=== PATIENT | female | born 1960 | race Caucasian/White ===

== ENCOUNTER 2019-02-02 18:44 | Inpatient (IN) | payer MEDICARE, OTHER ==
[~2019-02-02] VITALS: Ht 170.2 cm; Wt 69.5 kg
[2019-02-02] MEDS ORDERED: GABA-531 PO (19:09)
[2019-02-02] MEDS ORDERED: DULO30CA52 PO (19:09)
[2019-02-02] MEDS ORDERED: ARIP10TA16 PO (19:09)
[2019-02-02] MEDS ORDERED: RIVA1TAB PO (19:09)
[2019-02-02] MEDS ORDERED: NYST1POW9 MC (19:10)
[2019-02-02] MEDS ORDERED: SIMV-43 PO (19:10)
[2019-02-02 19:48] LABS: EOSINOPHILS % (AUTO) 0.4 % (1.0-6.0); LYMPHOCYTES # (AUTO) 0.7 K/uL (1.0-4.8); LYMPHOCYTES % (AUTO) 30.6 % (22.0-44.0); MEAN CORPUSCULAR HEMOGLOBIN 29.9 pg (26.0-34.0); MEAN CORPUSCULAR VOLUME 88 fL (80-100); MONOCYTES # (AUTO) 0.3 K/uL (0.1-1.0); MONOCYTES % (AUTO) 11.6 % (2.0-9.0); NEUTROPHILS # (AUTO) 1.3 K/uL (1.8-7.7); NEUTROPHILS % (AUTO) 56.4 % (40.0-70.0); PLATELET COUNT (AUTO) 219 K/uL (150-450); RED BLOOD CELL COUNT(AUTO) 2.23 MIL/uL (4.00-5.20); RED CELL DISTRIBUTION WIDTH 16.1 % (11.5-14.5)
[2019-02-02 20:05] LABS: HEMATOCRIT 19.6 % (36-46); HEMOGLOBIN 6.7 g/dL (12.0-16.0)
[2019-02-02 20:06] LABS: CARBON DIOXIDE 32 mmol/L (22-29); CHLORIDE 103 mmol/L (98-107); POTASSIUM 3.6 mmol/L (3.5-5.1); SODIUM SERUM 141 mmol/L (136-145)
[2019-02-02 20:07] LABS: ANION GAP 6 mmol/L (8-16); CALCIUM, TOTAL 8.4 mg/dL (8.8-10.5); CREATININE 0.72 mg/dL (0.60-1.30); GLOMERULAR FILTR. RATE CALC > 60 mL/min (>60); GLUCOSE,RANDOM 121 mg/dL (70-110); UREA NITROGEN, BLOOD 13 mg/dL (7-18)
[2019-02-02 20:11] LABS: PLATELET MORPHOLOGY COMMENT NORMAL
[2019-02-02 20:12] LABS: ALANINE AMINOTRANSFERASE 41 U/L (12-78); ALBUMIN 2.9 g/dL (3.4-5.0); ALKALINE PHOSPHATASE 108 U/L (46-116); ASPARTATE AMINOTRANSFERASE 53 U/L (15-37); BILIRUBIN,TOTAL 1.1 mg/dL (0.1-1.0); TOTAL PROTEIN, SERUM 6.4 g/dL (6.4-8.2)
[2019-02-02] MEDS ORDERED: SODIUM CHLORIDE 0.9% 1,000 ML ONE (21:29)
[2019-02-02 21:40] VITALS: BP 98/57
[2019-02-02 22:00] VITALS: BP 100/58
[2019-02-02 22:15] VITALS: BP 108/63
[2019-02-02 22:45] VITALS: BP 117/72
[2019-02-02 23:15] VITALS: BP 118/81
[2019-02-02] MEDS ORDERED: ACETAMINOPHEN 325 MG TABLET PO PRN ×2 (23:30)
[2019-02-02] MEDS ORDERED: 0.9% SODIUM CHLORIDE 10 ML SYRINGE IVP PRN ×2 (23:30)
[2019-02-02] MEDS ORDERED: ONDANSETRON HCL 4 MG/2 ML VIAL IVP PRN ×2 (23:30)
[2019-02-03] VITALS (15 sets, daily range): BP systolic 98–135; BP diastolic 52–74
[2019-02-03] MEDS ORDERED: MAGNESIUM HYDROXIDE SUSPENSION 30 ML UDCUP PO PRN (00:45)
[2019-02-03] MEDS ORDERED: ALBUTEROL SULFATE 2.5 MG/0.5 ML NEB SOLUTION NEB PRN (00:45)
[2019-02-03] MEDS ORDERED: IPRATROPIUM BROMIDE 0.5 MG/2.5 ML NEB SOLUTION NEB PRN (00:45)
[2019-02-03] MEDS ORDERED: ONDANSETRON HCL 4 MG/2 ML VIAL IVP PRN (00:45)
[2019-02-03] MEDS ORDERED: BISACODYL 10 MG RECTAL RECTAL SUPPOSITORY PR PRN (00:45)
[2019-02-03] MEDS ORDERED: ZOLPIDEM TARTRATE 5 MG TABLET PO PRN (00:45)
[2019-02-03] MEDS ORDERED: MORPHINE SULFATE 2 MG/ML SYRINGE IVP PRN (00:45)
[2019-02-03 01:18] LABS: BASOPHILS % (AUTO) 1.2 % (0.0-2.0); EOSINOPHILS % (AUTO) 0.9 % (1.0-6.0); LYMPHOCYTES # (AUTO) 0.9 K/uL (1.0-4.8); MEAN CORPUSCULAR HEMOGLOBIN 30.2 pg (26.0-34.0); MEAN CORPUSCULAR HGB CONC 34.6 G/dL (31.0-37.0); MEAN CORPUSCULAR VOLUME 87 fL (80-100); MONOCYTES # (AUTO) 0.4 K/uL (0.1-1.0); MONOCYTES % (AUTO) 16.2 % (2.0-9.0); NEUTROPHILS # (AUTO) 1.2 K/uL (1.8-7.7); NEUTROPHILS % (AUTO) 45.7 % (40.0-70.0); PLATELET COUNT (AUTO) 185 K/uL (150-450); RED BLOOD CELL COUNT(AUTO) 2.26 MIL/uL (4.00-5.20); RED CELL DISTRIBUTION WIDTH 15.6 % (11.5-14.5)
[2019-02-03 01:24] LABS: HEMATOCRIT 19.7 % (36-46); HEMOGLOBIN 6.8 g/dL (12.0-16.0)
[2019-02-03 01:27] LABS: ANION GAP 6 mmol/L (8-16); CALCIUM, TOTAL 8.2 mg/dL (8.8-10.5); CARBON DIOXIDE 30 mmol/L (22-29); CHLORIDE 104 mmol/L (98-107); CREATININE 0.69 mg/dL (0.60-1.30); GLOMERULAR FILTR. RATE CALC > 60 mL/min (>60); GLUCOSE,RANDOM 150 mg/dL (70-110); POTASSIUM 3.4 mmol/L (3.5-5.1); SODIUM SERUM 140 mmol/L (136-145); UREA NITROGEN, BLOOD 13 mg/dL (7-18)
[2019-02-03 01:33] LABS: ALANINE AMINOTRANSFERASE 35 U/L (12-78); ALBUMIN 2.5 g/dL (3.4-5.0); ALKALINE PHOSPHATASE 92 U/L (46-116); ASPARTATE AMINOTRANSFERASE 53 U/L (15-37); BILIRUBIN,TOTAL 1.8 mg/dL (0.1-1.0); TOTAL PROTEIN, SERUM 5.7 g/dL (6.4-8.2)
[2019-02-03] MEDS ORDERED: SODIUM CHLORIDE 0.9% 500 ML IV ONE (02:30)
[2019-02-03] MEDS: NYSTATIN 15 GM POWDER BOTTLE TP SCH ×3 (02:57→20:14)
[2019-02-03] MEDS: ACETAMINOPHEN 325 MG TABLET PO PRN (03:10)
[2019-02-03] MEDS ORDERED: INFLUENZA VIRUS VACCINE QVS 2019-20 (3YR+)/PF 60 MCG/0.5 ML SYRINGE IM ONE (06:15)
[2019-02-03 08:37] LABS: BASOPHILS % (AUTO) 1.2 % (0.0-2.0); EOSINOPHILS % (AUTO) 3.2 % (1.0-6.0); HEMATOCRIT 23.4 % (36-46); LYMPHOCYTES # (AUTO) 1.2 K/uL (1.0-4.8); LYMPHOCYTES % (AUTO) 44.8 % (22.0-44.0); MEAN CORPUSCULAR HEMOGLOBIN 29.7 pg (26.0-34.0); MEAN CORPUSCULAR HGB CONC 34.2 G/dL (31.0-37.0); MEAN CORPUSCULAR VOLUME 87 fL (80-100); MONOCYTES # (AUTO) 0.4 K/uL (0.1-1.0); NEUTROPHILS # (AUTO) 0.9 K/uL (1.8-7.7); NEUTROPHILS % (AUTO) 35.8 % (40.0-70.0); PLATELET COUNT (AUTO) 179 K/uL (150-450); RED CELL DISTRIBUTION WIDTH 14.7 % (11.5-14.5)
[2019-02-03 08:55] LABS: ALANINE AMINOTRANSFERASE 37 U/L (12-78); ALBUMIN 2.5 g/dL (3.4-5.0); ALKALINE PHOSPHATASE 89 U/L (46-116); ANION GAP 3 mmol/L (8-16); ASPARTATE AMINOTRANSFERASE 56 U/L (15-37); BILIRUBIN,TOTAL 1.8 mg/dL (0.1-1.0); CALCIUM, TOTAL 8.6 mg/dL (8.8-10.5); CARBON DIOXIDE 32 mmol/L (22-29); CHLORIDE 107 mmol/L (98-107); CREATININE 0.51 mg/dL (0.60-1.30); GLOMERULAR FILTR. RATE CALC > 60 mL/min (>60); GLUCOSE,RANDOM 98 mg/dL (70-110); POTASSIUM 3.5 mmol/L (3.5-5.1); SODIUM SERUM 142 mmol/L (136-145); TOTAL PROTEIN, SERUM 5.6 g/dL (6.4-8.2); UREA NITROGEN, BLOOD 12 mg/dL (7-18)
[2019-02-03] MEDS: DOCUSATE SODIUM 100 MG CAPSULE PO SCH ×2 (09:10→20:00)
[2019-02-03] MEDS: ARIPiprazole 10 MG TABLET PO SCH (09:10)
[2019-02-03] MEDS: SIMVASTATIN 20 MG TABLET PO SCH (09:10)
[2019-02-03] MEDS: GABAPENTIN 300 MG CAPSULE PO SCH ×3 (09:10→20:00)
[2019-02-03] MEDS: DULoxetine HCL 30 MG CAPSULE PO SCH (09:10)
[2019-02-03] MEDS ORDERED: RIVAROXABAN 15 MG TABLET PO SCH (17:30)
[2019-02-03] MEDS: HYDROCODONE/ACETAMINOPHEN 5-325 MG TABLET PO PRN (20:01)
[2019-02-04] VITALS (7 sets, daily range): BP systolic 90–118; BP diastolic 51–61
[2019-02-04] MEDS: HYDROCODONE/ACETAMINOPHEN 5-325 MG TABLET PO PRN (04:19)
[2019-02-04] MEDS: ARIPiprazole 10 MG TABLET PO SCH (09:57)
[2019-02-04] MEDS: DULoxetine HCL 30 MG CAPSULE PO SCH (09:57)
[2019-02-04] MEDS: NYSTATIN 15 GM POWDER BOTTLE TP SCH ×2 (09:57→20:03)
[2019-02-04] MEDS: SIMVASTATIN 20 MG TABLET PO SCH (09:57)
[2019-02-04] MEDS: GABAPENTIN 300 MG CAPSULE PO SCH ×3 (09:57→20:00)
[2019-02-04] MEDS: DOCUSATE SODIUM 100 MG CAPSULE PO SCH ×2 (09:57→20:00)
[2019-02-04] MEDS ORDERED: SODIUM CHLORIDE 0.9% 500 ML IV ONE (12:41)
[2019-02-04] MEDS: SOD FERRIC GLUC COMPLX/SUCROSE 125 MG in SODIUM CHLORIDE 0.9% 100 ML IV SCH (12:52)
[2019-02-04] MEDS: MULTIVITAMINS WITH MINERALS, THERAPEUTIC TABLET PO SCH (12:57)
[2019-02-04] MEDS: ACETAMINOPHEN 325 MG TABLET PO PRN (20:00)
[2019-02-05 05:06] VITALS: BP 101/61
[2019-02-05 06:37] LABS: BASOPHILS % (AUTO) 1.1 % (0.0-2.0); EOSINOPHILS % (AUTO) 5.2 % (1.0-6.0); HEMATOCRIT 26.1 % (36-46); HEMOGLOBIN 8.9 g/dL (12.0-16.0); LYMPHOCYTES # (AUTO) 1.3 K/uL (1.0-4.8); LYMPHOCYTES % (AUTO) 42.8 % (22.0-44.0); MEAN CORPUSCULAR HGB CONC 34.1 G/dL (31.0-37.0); MEAN CORPUSCULAR VOLUME 88 fL (80-100); MONOCYTES # (AUTO) 0.3 K/uL (0.1-1.0); MONOCYTES % (AUTO) 9.3 % (2.0-9.0); NEUTROPHILS # (AUTO) 1.3 K/uL (1.8-7.7); NEUTROPHILS % (AUTO) 41.6 % (40.0-70.0); PLATELET COUNT (AUTO) 194 K/uL (150-450); RED BLOOD CELL COUNT(AUTO) 2.97 MIL/uL (4.00-5.20); RED CELL DISTRIBUTION WIDTH 15.3 % (11.5-14.5)
[2019-02-05 07:58] VITALS: BP 106/55
[2019-02-05] MEDS: ARIPiprazole 10 MG TABLET PO SCH (08:42)
[2019-02-05] MEDS: MULTIVITAMINS WITH MINERALS, THERAPEUTIC TABLET PO SCH (08:42)
[2019-02-05] MEDS: SIMVASTATIN 20 MG TABLET PO SCH (08:42)
[2019-02-05] MEDS: DULoxetine HCL 30 MG CAPSULE PO SCH (08:42)
[2019-02-05] MEDS: GABAPENTIN 300 MG CAPSULE PO SCH ×2 (08:43→16:12)
[2019-02-05] MEDS: DOCUSATE SODIUM 100 MG CAPSULE PO SCH (08:43)
[2019-02-05] MEDS: NYSTATIN 15 GM POWDER BOTTLE TP SCH (08:43)
[2019-02-05 11:35] VITALS: BP 99/58
[2019-02-05] MEDS: SOD FERRIC GLUC COMPLX/SUCROSE 125 MG in SODIUM CHLORIDE 0.9% 100 ML IV SCH (12:17)
[2019-02-05] MEDS: ACETAMINOPHEN 325 MG TABLET PO PRN (12:33)
[2019-02-05] MEDS ORDERED: NYST15PO3 TP (12:37)
[2019-02-05] MEDS ORDERED: MUPIROCIN CALCIUM 2% 22 GM OINTMENT TP SCH (21:00)
== END 2019-02-05 18:00 | disposition home or self-care (01) | DRG 811 ==
LOC: EMS 18:50 → 4E 23:00
PROVIDERS: ADMIT Hospitalist; ATTEND Hospitalist
PROC: 30233N1 Transfusion of Nonautologous Red Blood Cells into Peripheral Vein, Percutaneous Approach (ICD-10-PCS; principal; 2019-02-02)
DX: D64.9 Anemia, unspecified (principal); E43 Unspecified severe protein-calorie malnutrition; B48.8 Other specified mycoses; F20.9 Schizophrenia, unspecified; E78.5 Hyperlipidemia, unspecified; F32.9 Major depressive disorder, single episode, unspecified; Z74.01 Bed confinement status
CPT/HCPCS: 76700; 82271; 86850; 86900; 86901; 86920; 87081; 93005; 93970; G0378; J2916; J7030; J7040; J7050; P9016

== ENCOUNTER 2019-04-23 21:46 | Emergency (ER) | payer MEDICARE, OTHER ==
[~2019-04-23] VITALS: Ht 162.6 cm; Wt 71.4 kg
[~2019-04-23 21:46] MED LIST: ARIP10TA16 PO; DULO30CA52 PO; GABA-531 PO; NYST15PO3 TP; SIMV-43 PO
[2019-04-23 22:11] LABS: GLUCOSE,POINT OF CARE 90 MG/DL (70-110)
[2019-04-23 22:49] LABS: BASOPHILS % (AUTO) 0.8 % (0.0-2.0); EOSINOPHILS % (AUTO) 2.2 % (1.0-6.0); HEMATOCRIT 32.7 % (36-46); HEMOGLOBIN 11.1 g/dL (12.0-16.0); LYMPHOCYTES # (AUTO) 2.1 K/uL (1.0-4.8); LYMPHOCYTES % (AUTO) 36.1 % (22.0-44.0); MEAN CORPUSCULAR HEMOGLOBIN 30.2 pg (26.0-34.0); MEAN CORPUSCULAR VOLUME 89 fL (80-100); MONOCYTES # (AUTO) 0.5 K/uL (0.1-1.0); MONOCYTES % (AUTO) 8.3 % (2.0-9.0); NEUTROPHILS % (AUTO) 52.6 % (40.0-70.0); PLATELET COUNT (AUTO) 111 K/uL (150-450); RED BLOOD CELL COUNT(AUTO) 3.68 MIL/uL (4.00-5.20); RED CELL DISTRIBUTION WIDTH 14.1 % (11.5-14.5)
[2019-04-23 23:07] LABS: ANION GAP 3 mmol/L (8-16); CALCIUM, TOTAL 9.3 mg/dL (8.8-10.5); CARBON DIOXIDE 34 mmol/L (22-29); CHLORIDE 106 mmol/L (98-107); CREATININE 0.76 mg/dL (0.60-1.30); GLOMERULAR FILTR. RATE CALC > 60 mL/min (>60); GLUCOSE,RANDOM 107 mg/dL (70-110); POTASSIUM 4.1 mmol/L (3.5-5.1); SODIUM SERUM 143 mmol/L (136-145); UREA NITROGEN, BLOOD 25 mg/dL (7-18)
[2019-04-23 23:10] LABS: % IRON SATURATION 23.6 % (22-44); IRON, SERUM 54 mcg/dL (50-175); TOTAL IRON BINDING CAPACITY 228 mcg/dL (250-450)
[2019-04-23 23:13] LABS: ALANINE AMINOTRANSFERASE 51 U/L (12-78); ALBUMIN 3.3 g/dL (3.4-5.0); ALKALINE PHOSPHATASE 82 U/L (46-116); ASPARTATE AMINOTRANSFERASE 60 U/L (15-37); BILIRUBIN,TOTAL 0.3 mg/dL (0.1-1.0); TOTAL PROTEIN, SERUM 6.5 g/dL (6.4-8.2)
[2019-04-24] MEDS ORDERED: TraZODone HCL 50 MG TABLET PO ONE
[2019-04-24] MEDS ORDERED: LORazepam 2 MG/ML VIAL IM ONE
[2019-04-24 02:55] VITALS: BP 99/64
== END 2019-04-24 03:38 | disposition home or self-care (01) ==
LOC: EMS 21:46
DX: D64.9 Anemia, unspecified (principal); F79 Unspecified intellectual disabilities; F20.9 Schizophrenia, unspecified; Z79.899 Other long term (current) drug therapy
CPT/HCPCS: 36415; 70450; 80053; 82962; 83540; 83550; 84484; 85025; 93005; 96372; 99285; J2060; 96374

== ENCOUNTER 2024-09-08 15:59 | Inpatient (IN) | payer MEDICARE, OTHER ==
[~2024-09-08] VITALS: Ht 167.6 cm; Wt 103.9 kg
[~2024-09-08 15:59] MED LIST changes: -ARIP10TA16 PO; +ARIP10TA86 PO; +CIPR250T6 PO
[2024-09-08] MEDS ORDERED: 0.9% SODIUM CHLORIDE 10 ML SYRINGE IVP PRN (16:30)
[2024-09-08] MEDS ORDERED: ONDANSETRON HCL 4 MG/2 ML VIAL IVP PRN (16:30)
[2024-09-08] MEDS ORDERED: BISACODYL 10 MG RECTAL RECTAL SUPPOSITORY PR PRN (16:30)
[2024-09-08] MEDS ORDERED: ACETAMINOPHEN 325 MG TABLET PO PRN (16:30)
[2024-09-08 16:49] LABS: PLATELET COUNT (AUTO) 115 K/uL (150-450); RED BLOOD CELL COUNT(AUTO) 4.21 MIL/uL (4.00-5.20); RED CELL DISTRIBUTION WIDTH 13.7 % (11.5-14.5); WHITE BLOOD COUNT (AUTO) 4.6 K/uL (4.5-11.0)
[2024-09-08 16:54] LABS: CALCIUM, TOTAL 8.9 mg/dL (8.8-10.5); CREATININE 0.95 mg/dL (0.60-1.30); GLOMERULAR FILTR. RATE CALC 59 mL/min (>60); GLUCOSE,RANDOM 115 mg/dL (70-110); SODIUM SERUM 145 mmol/L (136-145); UREA NITROGEN, BLOOD 25 mg/dL (7-18)
[2024-09-08] MEDS: SODIUM CHLORIDE 0.9% 900 ML IV ONE (16:59)
[2024-09-08] MEDS: CefTRIAXone 1 GM/DEXTROSE 50 ML IV ONE (17:00)
[2024-09-08 17:03] LABS: LACTIC ACID 1.7 mmol/L (0.4-2.0)
[2024-09-08 17:04] LABS: TROPONIN I-HIGH SENSITIVITY 11 ng/L (<51)
[2024-09-08 17:06] LABS: APPEARANCE,URINE CLEAR (CLEAR); GLUCOSE, URINE (UA) NEGATIVE (NEGATIVE); LEUKOCYTE ESTERASE ,URINE NEGATIVE (NEGATIVE); NITRATE,URINE NEGATIVE (NEGATIVE); OCCULT BLOOD,URINE MODERATE (NEGATIVE); SPECIFIC GRAVITIY, URINE 1.025 (1.003-1.030)
[2024-09-08 17:18] LABS: SQUAMOUS EPITHELIAL CELL,UR Few /LPF (None Seen)
[2024-09-08] MEDS: SODIUM CHLORIDE 0.9% 1,000 ML IV ONE (18:34)
[2024-09-08] MEDS: DOCUSATE SODIUM 100 MG CAPSULE PO SCH (20:05)
[2024-09-08 23:05] VITALS: BP 138/74; PULSE 73; RESP 12; TEMP 98.1; O2SAT 97
[2024-09-08] MEDS: HEPARIN SODIUM,PORCINE 5,000 UNITS/ML VIAL SQ SCH (23:52)
[2024-09-09 04:00] VITALS: BP 113/53; PULSE 81; RESP 14; TEMP 98.8; O2SAT 96
[2024-09-09 07:53] VITALS: BP 111/78; PULSE 83; RESP 15; TEMP 98.1; O2SAT 95
[2024-09-09] MEDS: FAMOTIDINE 20 MG TABLET PO SCH (08:30)
[2024-09-09 09:51] LABS: PLATELET COUNT (AUTO) 104 K/uL (150-450); RED BLOOD CELL COUNT(AUTO) 4.08 MIL/uL (4.00-5.20); RED CELL DISTRIBUTION WIDTH 13.8 % (11.5-14.5); WHITE BLOOD COUNT (AUTO) 5.0 K/uL (4.5-11.0)
[2024-09-09 09:57] LABS: CALCIUM, TOTAL 8.7 mg/dL (8.8-10.5); CREATININE 0.66 mg/dL (0.60-1.30); GLOMERULAR FILTR. RATE CALC > 60 mL/min (>60); GLUCOSE,RANDOM 126 mg/dL (70-110); SODIUM SERUM 145 mmol/L (136-145); UREA NITROGEN, BLOOD 18 mg/dL (7-18)
[2024-09-09 13:23] VITALS: BP 126/83; PULSE 81; RESP 15; TEMP 97.9; O2SAT 95
== END 2024-09-09 14:10 | disposition home or self-care (01) | DRG 70 ==
LOC: EMS 15:59 → EDH 16:26 → 5N 23:49
PROVIDERS: ADMIT Internal Medicine; ATTEND Internal Medicine
DX: G93.49 Other encephalopathy (principal); R53.2 Functional quadriplegia; M48.061 Spinal stenosis, lumbar region without neurogenic claudication; F25.9 Schizoaffective disorder, unspecified; E66.9 Obesity, unspecified; Z68.37 Body mass index [BMI] 37.0-37.9, adult; Z79.899 Other long term (current) drug therapy; Z74.01 Bed confinement status; R62.50 Unspecified lack of expected normal physiological development in childhood
CPT/HCPCS: 51702; 70450; 71045; 80048; 81001; 83605; 83690; 83880; 84145; 84484; 85025; 85610; 87040; 92610; 93005; 99285; J0696; J7030; 36415-L1; 36415-TC